=== PATIENT | female | born 1985 | race Caucasian/White ===

== ENCOUNTER 2022-06-16 11:17 | Emergency (ER) | payer BC | END 2022-06-16 13:27 | disposition home or self-care (01) | LOC: MW.ED 11:17 | DX: S90.01XA Contusion of right ankle, initial encounter (principal); L03.115 Cellulitis of right lower limb; Z79.899 Other long term (current) drug therapy | CPT/HCPCS: 73590-26-RT; 73590-RT; 93971-26-RT; 93971-RT; 99284 ==